=== PATIENT | male | born 1960 | race African-American/Black ===

== ENCOUNTER 2018-07-01 08:48 | Inpatient (IN) | payer BC, OTHER ==
[~2018-07-01] VITALS: Ht 185.4 cm; Wt 113.4 kg
[2018-07-01] MEDS ORDERED: TAMS0.4C (09:07)
[2018-07-01] MEDS ORDERED: GLUMETZA500 MG (09:07)
--- NOTE | 2018-07-01 09:17 | NUR ---
PACIENTE ALERTA Y ORIENTADO POR SAIGE ESFERAS QUIEN LLEGA A ER AGUATADO DE ACOMPANADO DE COMPANEROS DE TRABAJO POR MAREOS Y DIFICULTAD DE SOSTENERSE EN [place] PIES. SE ACUESTA A PACIENTE PARA REALIZARLE EKG Y SE QUEDA DORMIDO CON FACILIDAD. ACOMPANANTES REFIERE ESTA PRESENTADO LOS SINTOMAS DESDE RACHEL EN LA NOCHE. SE PRESENTA EKG A DR. ARCE.
--- NOTE | 2018-07-01 10:17 | NUR ---
SE ORIENTA PTE SOBRE EL TRATAMIENTO ORDENADO POR LA IRENE YAZMIN PTE ALERTA Y CONCIENTE POR 3 SE REALIZAN MUESTRAS DE LABORATORIO Y SE ADMINISTRAN MEDICAMENTO JORDI ORDENADO. PTE SE MANTIENE EN OBSERVACION Y BAJO TRATAMIENTO.
== END 2018-07-02 20:51 | disposition left against medical advice (07) | DRG 152 ==
LOC: ER 08:48 → EDBD 08:57 → MEDJ 18:06
PROVIDERS: ADMIT Internal Medicine
PROC: BW24ZZZ Computerized Tomography (CT Scan) of Chest and Abdomen (ICD-10-PCS; principal; 2018-07-01)
PROC: BH4CZZZ Ultrasonography of Head and Neck (ICD-10-PCS; 2018-07-01)
PROC: 4A033R1 Measurement of Arterial Saturation, Peripheral, Percutaneous Approach (ICD-10-PCS; 2018-07-01)
PROC: 3E0F7GC Introduction of Other Therapeutic Substance into Respiratory Tract, Via Natural or Artificial Opening (ICD-10-PCS; 2018-07-01)
PROC: 8E0ZXY6 Isolation (ICD-10-PCS; 2018-07-01)
DX: J11.1 Influenza due to unidentified influenza virus with other respiratory manifestations (principal); J80 Acute respiratory distress syndrome; E86.0 Dehydration; R53.1 Weakness; N40.0 Benign prostatic hyperplasia without lower urinary tract symptoms; E11.9 Type 2 diabetes mellitus without complications; Z79.4 Long term (current) use of insulin; E87.8 Other disorders of electrolyte and fluid balance, not elsewhere classified